=== PATIENT | male | born 1965 | race Caucasian/White ===

== ENCOUNTER 2024-09-25 08:13 | Emergency (ER) | payer OTHER ==
--- NOTE | 2024-09-25 08:44 | ED ---
General Adult HPI - General Chief complaint: Neuro Symptoms/Deficit Stated complaint: facial numbness Time Seen by Provider: 09/25/24 08:23 Source: patient, RN notes reviewed Mode of arrival: ambulatory Limitations: no limitations - History of Present Illness Initial comments: Patient is a 59-year-old male present to the emergency department with concerns for left-sided paresthesias. Patient has had paresthesias of his leg and arm for months, greater than 6. Patient has had some paresthesias of his left face for the last few weeks. Patient did go to urgent care and was prescribed antibiotics for possible sinus infection. No weakness. No headache. No confusion. No speech problems. No loss of sensation. - Related Data Allergies Allergy/AdvReac Type Severity Reaction Status Date / Time No Known Allergies Allergy Verified 09/25/24 08:18 Review of Systems ROS Statement: Those systems with pertinent positive or pertinent negative responses have been documented in the HPI. ROS Other: All systems not noted in ROS Statement are negative. Constitutional: Denies: fever Eyes: Denies: eye pain ENT: Denies: ear pain Respiratory: Denies: cough, dyspnea Cardiovascular: Denies: chest pain Endocrine: Denies: fatigue Gastrointestinal: Denies: abdominal pain Neurological: Reports: as per HPI, paresthesias. Denies: headache, weakness, confusion Past Medical History Past Medical History: No Reported History Past Surgical History: No Surgical Hx Reported Smoking Status: Former smoker Past Alcohol Use History: None Reported Past Drug Use History: None Reported General Exam Limitations: no limitations General appearance: alert, in no apparent distress Head exam: Present: atraumatic, normocephalic Eye exam: Present: normal appearance, PERRL, EOMI ENT exam: Present: normal oropharynx, TM's normal bilaterally Neck exam: Present: normal inspection Respiratory exam: Present: normal lung sounds bilaterally Cardiovascular Exam: Present: regular rate, normal rhythm GI/Abdominal exam: Present: soft. Absent: tenderness Extremities exam: Present: normal inspection Neurological exam: Present: alert, oriented X3, CN II-XII intact. Absent: motor sensory deficit Expanded Neurological exam: Present: protecting the airway Speech: Present: fluid speech Cranial nerves: EOM's Intact: Normal, Facial Sensation: Normal Sensory exam: Upper Extremity Light Touch: Normal, Lower Extremity Light Touch: Normal Motor strength exam: RUE: 5, LUE: 5, RLE: 5, LLE: 5 Eye Response: (4) open spontaneously Motor Response: (6) obeys commands Verbal Response: (5) oriented Psychiatric exam: Present: normal affect, normal mood Skin exam: Present: normal color Course Vital Signs 09/25/24 09/25/24 09/25/24 08:18 08:44 09:50 Temperature 97.8 F 97.7 F 97.9 F Pulse Rate 81 76 83 Respiratory 20 16 17 Rate Blood Pressure 154/92 152/96 150/103 O2 Sat by Pulse 100 99 98 Oximetry EKG Findings - EKG Results: EKG: interpreted by ERMD (Left axis. Poor R wave progression.), sinus rhythm, normal ST/T Medical Decision Making - Medical Decision Making Was pt. sent in by a medical professional or institution ([facility], [employer], urgent care, hospital, or intermediate...) When possible be specific @ -No Did you speak to anyone other than the patient for history (EMS, parent, family, police, friend...)? What history was obtained from this source @ -No Did you review nursing and triage notes (agree or disagree)? Why? @ -I reviewed and agree with nursing and triage notes Were old charts reviewed (outside hosp., previous admission, EMS record, old EKG, old radiological studies, urgent care reports/EKG's, intermediate records)? Report findings @ -No old charts were reviewed Differential Diagnosis (chest pain, altered mental status, abdominal pain women, abdominal pain men, vaginal bleeding, weakness, fever, dyspnea, syncope, headache, dizziness, GI bleed, back pain, seizure, CVA, palpatations, mental health, musculoskeletal)? @ -Differential Dizziness: Benign paroxysmal positional Vertigo, Meniere's disease, otitis media, acoustic neuroma, vertebrobasilar insufficiency, cerebellar stroke, encephalitis, hypovolemic, arrhythmia, coronary artery syndrome, anemia, this is not meant to be an all-inclusive list EKG interpreted by me (3pts min.). @ -As above X-rays interpreted by me (1pt min.). @ -None done CT interpreted by me (1pt min.). @ -CT scan of brain and cervical spine did not reveal acute abnormality. Lung nodule U/S interpreted by me (1pt. min.). @ -None done What testing was considered but not performed or refused? (CT, X-rays, U/S, labs)? Why? @ -None What meds were considered but not given or refused? Why? @ -None Did you discuss the management of the patient with other professionals (professionals i.e. , PA, [employer], lab, RT, psych nurse, social sciences professor, presidential helicopter crew chief, teacher, medical scientific officer, heel caser)? Give summary @ -No Was smoking cessation discussed for >3mins.? @ -No Was critical care preformed (if so, how long)? @ -No Were there social determinants of health that impacted care today? How? (Homelessness, low income, unemployed, alcoholism, drug addiction, transportation, low edu. Level, literacy, decrease access to med. care, fdc, rehab)? @ -No Was there de-escalation of care discussed even if they declined (Discuss DNR or withdrawal of care, Hospice)? DNR status @ -No What co-morbidities impacted this encounter? (DM, HTN, Smoking, COPD, CAD, Cancer, CVA, ARF, Chemo, Hep., AIDS, mental health diagnosis, sleep apnea, morbid obesity)? @ -None Was patient admitted / discharged? Hospital course, mention meds given and route, prescriptions, significant lab abnormalities, going to OR and other pertinent info. @ -Patient reevaluated and no change in symptoms. Exact etiology of paresthesias is not determined at this time. Patient is recommending close follow-up with primary care physician for further evaluation as well as general care. Discussion had with patient regarding treatment of blood pressure and he would not want to do this at this time. Patient would like to try dietary changes and have blood pressure rechecked in a more casual setting to see if it improves at that point. Patient is made aware of need for follow-up as well as need for follow-up for nodule on CT scan. Undiagnosed new problem with uncertain prognosis? @ -No Drug Therapy requiring intensive monitoring for toxicity (Heparin, Nitro, Insulin, Cardizem)? @ -No Were any procedures done? @ -No Diagnosis/symptom? @ -Paresthesia, hypertension Acute, or Chronic, or Acute on Chronic? @ -Acute on chronic Uncomplicated (without systemic symptoms) or Complicated (systemic symptoms)? @ -Default Side effects of treatment? @ -No Exacerbation, Progression, or Severe Exacerbation? @ -No Poses a threat to life or bodily function? How? (Chest pain, [place], [place], pneumonia, PE, COPD, DKA, ARF, appy, cholecystitis, CVA, Diverticulitis, Homicidal, Suicidal, threat to staff... and all critical care pts) @ -No Disposition Clinical Impression: Paresthesia Disposition: HOME SELF-CARE Condition: Stable Instructions (If sedation given, give patient instructions): Paresthesia (ED) Additional Instructions: Please do follow-up with primary care physician in the next day or 2 for recheck. Have primary care physician recheck blood pressure and check results from CT scan. You will need monitoring for lung nodule. Return for weakness, loss of sensation, headache, uncontrolled blood pressure, worsening symptoms or any other concerns. Is patient prescribed a controlled substance at d/c from ED?: No Referrals: None,Stated [Primary Care Provider] - 1-2 days Kishore Davis MD [STAFF PHYSICIAN] - 1-2 days Forms: Area PCPs Time of Disposition: 10:19
--- NOTE | 2024-09-25 09:39 | CT ---
EXAMINATION TYPE: CT brain cspine wo con DATE OF EXAM: 09/25/2024 9:16 AM COMPARISON: None. CLINICAL INDICATION: Male, 59 years old with history of L paresthesias, LT paresthesias, Technique: Examination of the head was done in axial plane without intravenous contrast. Coronal and sagittal reconstructions performed. CT of the cervical spine was obtained in axial plane without intravenous injection of contrast mater ial. Coronal and sagittal reformatted images were obtained from the axial views for evaluation of f ractures, spinal alignment and canal. CT DLP: 1778.5 mGycm, Automated exposure control for dose reduction was used. FINDINGS: Head: There is no evidence of acute intracranial hemorrhage, acute ischemic changes, mass, mass-effect, or extra-axial fluid collection. There is no effacement of cerebral sulci or basal subarachnoid cister ns. There is no hydrocephalus. There is no midline shift. Rahman-white matter distinction is preserv ed. Lobulated mucosal thickening floor of the left maxillary sinus. Slight leftward nasal septal deviatio n. Mastoid air cells are well pneumatized. Orbits and globes are intact. Cervical spine: 7 mm and 5 mm subpleural nodules lateral left apex can be reassessed at a three-month follow-up CT ch est there is some mosaic attenuation in the upper lungs may reflect small airways disease. No craniocervical junction abnormality, predental space widening, or prevertebral soft tissue swellin g. [id number] facet arthropathy mid to lower cervical spine and mild uncovertebral joint arthropat hy lower cervical spine. Mild degenerative disc disease lower cervical spine. No acute fracture or malalignment. No evident canal compromise by CT. Variable mild neuroforaminal narrowing particularly in the mid cervical spine. Sagittal and coronal reformatted images confirm above findings. COMBINED IMPRESSION: 1. No acute intracranial abnormality seen. 2. Mild to moderate spondylotic changes in the cervical spine. No acute fracture or malalignment. 3. Subpleural nodularity lateral left apex measuring up to 7 mm may reflect pleural parenchymal scarr ing. Recommend three-month follow-up CT chest to reassess and survey the remainder of the lungs. [facility], , 09/25/2024 9:37 AM
[2024-09-25 10:44] VITALS: BP 136/78; PULSE 80; RESP 18; TEMP 98
== END 2024-09-25 10:44 | disposition home or self-care (01) ==
LOC: EC 08:13
DX: R20.2 Paresthesia of skin (principal); I10 Essential (primary) hypertension; Z87.891 Personal history of nicotine dependence
CPT/HCPCS: 70450; 72125; 93005; 99284